=== PATIENT | male | born 1955 | race Caucasian/White ===

== ENCOUNTER 2021-12-04 14:05 | Emergency (ER) | payer OTHER, SELFPAY ==
[2021-12-04] VITALS (8 sets, daily range): BP systolic 118–144; BP diastolic 69–84; PULSE 49–61; RESP 18; TEMP 36.5; O2SAT 96–100; BMI 28.8
--- NOTE | 2021-12-04 15:32 | ED.GENADULT ---
HPI - General Adult General Chief complaint: Urogenital-Male Stated complaint: Thinks kidney stones- lower lt back/abd pain Time Seen by Provider: 12/04/21 14:06 Source: patient Mode of arrival: Family Vehicle History of Present Illness HPI narrative: 66-year-old gentleman with a history of hypertension, hyperlipidemia, no prior history of kidney stones or diverticulitis presents complaining of left lower quadrant pain that started this morning with acute cold sweats. He describes no fever. He notes that yesterday he was working in the [employer] all day long and did not eat or drink much. This morning he has a significant urge to defecate and urinate but has not been able to actually pass any urine or stool. He has had significant nausea and dry heaves but no actual emesis. On arrival in the emergency department he has a bladder scan that shows 75 cc urine only. He describes no chest pain, dyspnea, orthopnea, palpitations, headache, skin changes, back pain. Related Data Allergies Allergy/AdvReac Type Severity Reaction Status Date / Time ciprofloxacin [From Cipro] Allergy Muscle Pain Verified 12/04/21 14:31 Review of Systems Review of Systems Narrative: Remainder of complete review of systems is otherwise unremarkable except for that included in the HPI. Patient History Medical History (Updated 12/04/21 @ 19:44 by Pooja Bales MD) Hyperlipidemia Hypertension Kidney stones Social History Smoking Status: Never smoker Smoking Status: Never smoker alcohol intake frequency: a few times a week Substance Use Type: does not use Exam Initial Vital Signs Initial Vital Signs: Vital Signs Temperature 97.7 F 12/04/21 14:28 Pulse Rate 49 L 12/04/21 14:28 Respiratory Rate 18 12/04/21 14:28 Blood Pressure 118/84 12/04/21 14:28 Pulse Oximetry 100 12/04/21 14:28 Oxygen Delivery Method 12/04/21 14:28 General: Healthy appearing, in mild distress. Able to give a complete and coherent history. Well-nourished well-developed HEENT: Moist mucous membranes, normal sclera with reactive pupils, Neck: No JVD, supple Respiratory: Lungs are clear to auscultation, no wheezing no rales no rhonchi. Full and symmetrical air movement Cardiac: Regular rate and rhythm no murmurs no bruits Abdomen: Soft, mild left lower quadrant and left flank pain without rebound or guarding Skin: Warm and dry, no rashes Neurologic: Grossly neurologically intact with no obvious asymmetries or abnormalities Extremities: No trauma, well perfused Psych: Cooperative, appropriate insight and affect Course Orders Ordered: ED Orders 12/04/21 14:06 UA dip and micro [Urinalysis and Microscopic] Stat 12/04/21 15:42 CT abdomen pelvis wo con Stat 12/04/21 17:31 Complete Blood Count AUTO DIFF Stat Comprehensive Metabolic Panel Stat Hydromorphone HCl (Hydromorphone 0.5 Mg Inj) 0.5 mg IV Q15MIN PRN PRN Reason: Pain, Last Admin: 12/04/21 17:49 Dose: 0.5 mg Documented By: CLARA Sodium Chloride (Normal Saline 0.9%) 1,000 mls @ 150 mls/hr IV CONT IKE Last Admin: 12/04/21 19:33 Dose: Not Given Documented By: AT Discontinued Medications Sodium Chloride (Normal Saline 0.9%) 1,000 mls @ 1,000 mls/hr IV BOLUS ONE Stop: 12/04/21 18:32 Last Infusion: 12/04/21 19:33 Dose: 0 mls/hr Documented By: Admin: 12/04/21 17:49 Dose: 1,000 mls/hr Documented By: CTS Sodium Chloride (Normal Saline 0.9%) 1,000 mls @ 1,000 mls/hr IV BOLUS ONE Stop: 12/04/21 18:33 Last Admin: 12/04/21 19:33 Dose: 1,000 mls/hr Documented By: AT Ketorolac Tromethamine (Ketorolac 30 Mg/Ml Vial) 15 mg IV NOW ONE Stop: 12/04/21 17:34 Last Admin: 12/04/21 17:48 Dose: 15 mg Documented By: CTS Ondansetron HCl (Ondansetron 4 Mg/2 Ml Inj) 4 mg IV NOW ONE Stop: 12/04/21 15:43 Last Admin: 12/04/21 17:48 Dose: 4 mg Documented By: CLARA Oxycodone/Acetaminophen (Oxycodone/Apap 5/325 Prepack) 1 bottle MISC SEEINSTR ONE Stop: 12/04/21 19:35 Vital Signs Vital signs: Vital Signs - 8 hr 12/04/21 14:28 12/04/21 17:30 12/04/21 17:30 Temperature 97.7 F Pulse Rate 49 L 51 L Respiratory Rate 18 Blood Pressure 118/84 139/74 Pulse Oximetry 100 96 Oxygen Delivery Method Room Air Room Air 12/04/21 18:00 Temperature Pulse Rate 55 L Respiratory Rate Blood Pressure Pulse Oximetry 96 Oxygen Delivery Method Room Air Medical Decision Making Lab Data Result diagrams: 12/04/21 17:31 12/04/21 17:31 Labs: Lab Results 12/04/21 12/04/21 Range/Units 17:31 17:31 WBC 9.7 (4.5-11.0) X10^3/uL RBC 4.69 (4.5-5.9) X10^6/uL Hgb 14.7 (13.5-17.5) g/dL Hct 42.1 (41-53) % MCV 89.6 (80-100) fL MCH 31.4 (26-34) PG MCHC 35.0 (30-36) % RDW 14.1 (11.6-14.8) % Plt Count 204 (150-400) X10^3/uL Neut % (Auto) 91.1 H (50-75) % Lymph % (Auto) 4.4 L (25-40) % [place] % (Auto) 4.3 (3-14) % Eos % (Auto) 0.0 L (2-4) % Baso % (Auto) 0.2 (0-2) % Neut # (Auto) 8800 H (4127-4212) /uL Lymph # (Auto) 400 L (0375-9148) /uL [place] # (Auto) 400 (0-900) /uL Eos # (Auto) 0 (0-450) /uL Baso # (Auto) 0 (0-100) /uL Sodium 138 (137-145) mmol/L Potassium 4.3 (3.4-5.1) mmol/L Chloride 105 (98-107) mmol/L Carbon Dioxide 22 (22-32) mmol/L BUN 22 H (9-20) mg/dL Creatinine 0.94 (0.66-1.25) mg/dL Estimated GFR > 60 (>60) mL/min BUN/Creatinine Ratio 23.4 H (6-22) Glucose 133 H (80-110) mg/dL Calcium 8.9 (8.4-10.2) mg/dL Total Bilirubin 0.9 (0.2-1.3) mg/dL AST 33 (17-59) IU/L ALT 29 (<50) IU/L Alkaline Phosphatase 76 (38-126) U/L Total Protein 7.5 (6.3-8.2) g/dL Albumin 4.7 (3.5-5.0) g/dL Globulin 2.8 (1.7-4.1) g/dL Albumin/Globulin Ratio 1.7 (1.0-2.8) Imaging Data CT scan - abdomen/pelvis: Radiologist's Impression: FINDINGS: ? Lower thorax: The lung bases are clear.? Heart size normal.? No hiatal hernia. ? Liver:? Normal in size and attenuation. No contour deformity present. ? Biliary system:? No calcified cholelithiasis or pericholecystic inflammation.? No intra or extrahepatic bile duct dilatation. ? Pancreas:? Unremarkable without mass or inflammation evident. ? Spleen:? Normal in size and density. ? Adrenals:? Normal morphology and density. ? Reproductive system:? Prostatic brachytherapy seeds noted. ? Urinary system:? Small 2 mm distal left ureteral calculus 1 cm from the ureterovesical junction results in moderate left hydronephrosis and hydroureter.? Additional 2.5 cm and left renal cyst noted. ? Gastrointestinal system:? The bowel is unremarkable without evidence of bowel obstruction or inflammation. The stomach appears unremarkable.? Multiple diverticula arise from the sigmoid colon without evidence of diverticulitis. ? ? Appendix:? No findings to suggest acute appendicitis. ? Peritoneal spaces:? No mesenteric or retroperitoneal adenopathy.? No free air.? No free fluid.? ? Vasculature:? Aortic atherosclerotic vascular calcification noted without evidence of aneurysm. ? Abdominal wall:? Bilateral inguinal hernias contain fat without bowel involvement. ? Musculoskeletal:? Normal bone mineralization.? Degenerative disc disease and arthropathy noted in lower lumbar spine.? Severe L4-5 central stenosis.? No acute fractures.? ? IMPRESSION: ? 1. Small 2 mm in the distal left ureter results in moderate left hydronephrosis and hydroureter. ? ? ? Approved by: James Sevilla M.D. on 12/04/2021 at 15:54? MDM Narrative Medical decision making narrative: 66-year-old gentleman with left lower quadrant and flank pain acute onset. CT scan shows 2 mm stone in the distal left ureter with mild left hydronephrosis. There is no evidence of intra-abdominal infection, diverticulitis, pyelonephritis or urinary tract infection. No bowel obstruction or masses appreciated. Patient responded well to 2 L of fluid, small doses of Dilaudid Zofran and Toradol. He is essentially pain-free at time of discharge. Reviewed recommendations with a 2 mm stone that still needs a cm to moved to pass into the bladder itself. Will place him on tamsulosin until the stone passes, give him a prescription for Percocet to use if needed and asked him to return to the ER signs or symptoms of infection or worsening obstruction or follow-up with his primary care provider for routine care. He is safe for home discharge Discharge Plan Departure Patient Disposition: Home Clinical Impression: Kidney stone Instructions: DI for Kidney Stones Activity Restrictions/Additional Instructions: Thank you for coming in today You have 1 to 2 mm kidney stone on the left side. It is about 1 cm from the bladder so it does not have far to go. I have given you a urine strainer to use. Please strain your urine until you see this small kidney stone, and at that point you can stop using the tamsulosin. Using 400 mg of ibuprofen (2 [id number] pills) and 1 Tylenol every 6 hours can be very helpful in controlling pain. For severe pain using 400 mg of ibuprofen and 1 Percocet can be helpful If you have fevers, worsening pain, uncontrolled vomiting or develop new findings or symptoms you do need to return to the emergency department I wish you well Referrals: Bravo Mandel MD [Primary Care Provider] -
--- NOTE | 2021-12-04 15:42 | DI.CT.S_ITS ---
PROCEDURE: CT ABDOMEN PELVIS WO CON INDICATIONS: Left flank/ LLQ pain. ? stone ? diverticulitis TECHNIQUE: After the administration of oral contrast, 5 mm thick sections acquired from the diaphragms to the symphysis. 5 mm coronal and sagittal reformats were performed. For radiation dose reduction, the following was used: automated exposure control, adjustment of mA and/or kV according to patient size. COMPARISON: None. FINDINGS: Lower thorax: The lung bases are clear. Heart size normal. No hiatal hernia. Liver: Normal in size and attenuation. No contour deformity present. Biliary system: No calcified cholelithiasis or pericholecystic inflammation. No intra or extrahepatic bile duct dilatation. Pancreas: Unremarkable without mass or inflammation evident. Spleen: Normal in size and density. Adrenals: Normal morphology and density. Reproductive system: Prostatic brachytherapy seeds noted. Urinary system: Small 2 mm distal left ureteral calculus 1 cm from the ureterovesical junction results in moderate left hydronephrosis and hydroureter. Additional 2.5 cm and left renal cyst noted. Gastrointestinal system: The bowel is unremarkable without evidence of bowel obstruction or inflammation. The stomach appears unremarkable. Multiple diverticula arise from the sigmoid colon without evidence of diverticulitis. Appendix: No findings to suggest acute appendicitis. Peritoneal spaces: No mesenteric or retroperitoneal adenopathy. No free air. No free fluid. Vasculature: Aortic atherosclerotic vascular calcification noted without evidence of aneurysm. Abdominal wall: Bilateral inguinal hernias contain fat without bowel involvement. Musculoskeletal: Normal bone mineralization. Degenerative disc disease and arthropathy noted in lower lumbar spine. Severe L4-5 central stenosis. No acute fractures. IMPRESSION: 1. Small 2 mm in the distal left ureter results in moderate left hydronephrosis and hydroureter. Approved by: James Sevilla M.D. on 12/04/2021 at 15:54
[2021-12-04 17:36] LABS: Add Manual Diff / Slide Review NO; Basophils Absolute Auto 0 /uL (0-100); Basophils Percent Auto 0.2 % (0-2); Eosinophils Absolute Auto 0 /uL (0-450); Hematocrit 42.1 % (41-53); Hemoglobin 14.7 g/dL (13.5-17.5); Lymphocytes Absolute Auto 400 /uL (1100-4500); Lymphocytes Percent Auto 4.4 % (25-40); Mean Corpuscular Hemoglobin 31.4 PG (26-34); Mean Corpuscular Volume 89.6 fL (80-100); Monocytes Absolute Auto 400 /uL (0-900); Monocytes Percent Auto 4.3 % (3-14); Neutrophils Absolute Auto 8800 /uL (1500-7000); Neutrophils Percent Auto 91.1 % (50-75); Platelet Count 204 X10^3/uL (150-400); Red Blood Cell Count 4.69 X10^6/uL (4.5-5.9); Red Cell Distribution Width 14.1 % (11.6-14.8); White Blood Cell Count 9.7 X10^3/uL (4.5-11.0)
[2021-12-04] MEDS: KETOROLAC 30 MG/ML VIAL 15 MG IV (17:48)
[2021-12-04] MEDS: ONDANSETRON 4 MG/2 ML INJ IV (17:48)
[2021-12-04] MEDS: HYDROMORPHONE 0.5 MG INJ IV (17:49)
[2021-12-04] MEDS: SODIUM CHLORIDE 0.9% 1,000 ML 1000 ML IV ×2 (17:49→19:33)
[2021-12-04 18:05] LABS: Alanine Aminotransferase 29 IU/L (<50); Albumin 4.7 g/dL (3.5-5.0); Albumin Globulin Ratio 1.7 (1.0-2.8); Alkaline Phosphatase 76 U/L (38-126); Aspartate Aminotransferase 33 IU/L (17-59); BUN Creatinine Ratio 23.4 (6-22); Bilirubin Total 0.9 mg/dL (0.2-1.3); Blood Urea Nitrogen 22 mg/dL (9-20); Calcium 8.9 mg/dL (8.4-10.2); Carbon Dioxide 22 mmol/L (22-32); Chloride 105 mmol/L (98-107); Estimated Glomerular Filt Rate > 60 mL/min (>60); Globulin 2.8 g/dL (1.7-4.1); Glucose 133 mg/dL (80-110); HEMOLYSIS < 15 (0-50); Potassium 4.3 mmol/L (3.4-5.1); Sodium 138 mmol/L (137-145); Total Protein 7.5 g/dL (6.3-8.2)
--- NOTE | 2021-12-04 18:13 | PC.NURSE ---
x2 RN attempted IV placement and lab attempted to draw blood, unsuccessfully. Delay in labs and medications r/t difficulty, Dr. Bales notified and anupam blood + placed IV.
[2021-12-04] MEDS: OXYCODONE/APAP 5/325 PREPACK 1 BOTTLE MISC (20:02)
== END 2021-12-04 20:20 | disposition home or self-care (01) ==
PROVIDERS: Emergency Provider Emergency Medicine; PCP Internal Medicine
DX: N20.0 Calculus of kidney (principal)
CPT/HCPCS: 51798; 74176; 80053; 85025; 96361; 96374; 96375; 99284; J1170; J1885; J2405

== ENCOUNTER 2023-08-21 07:49 | Day surgery (SDC) | payer OTHER, SELFPAY ==
[2023-08-17 13:35] VITALS: BMI 28.8
[2023-08-21] VITALS (7 sets, daily range): BP systolic 117–141; BP diastolic 64–89; PULSE 46–57; RESP 10–18; TEMP 36.1–36.8; O2SAT 90–99; BMI 28.8
[2023-08-21] MEDS: LACTATED RINGERS 1,000 ML 42 ML IV (08:11)
--- NOTE | 2023-08-21 08:44 | PM.PREOP ---
Pre-operative Note COVID-19 COVID-19 status: Not tested Interval Note History & Physical reviewed/Exam performed by Physician: Yes Changes to H&P: No ASA Class (for procedural sedation): II
--- NOTE | 2023-08-21 09:26 | SUR.OPER ---
Supine on padded OR bed, head on pillow, arms secured on padded arm boards at <90 degrees abduction, legs uncrossed, safety belt at thigh, tape over blanket over lower legs.
[2023-08-21] MEDS: CEFAZOLIN 2 GM/100 ML PREMIX 100 ML IV (09:28)
[2023-08-21] MEDS: BUPIVACAINE 0.5% (PF) 30 ML, EPINEPHrine 0.15 MG INJ (09:33)
--- NOTE | 2023-08-21 10:34 | P.OP_ITS ---
Operative Date/Time/Diagnoses Date of procedure: 08/21/23 Time of procedure: 10:35 Pre-op diagnosis: Right inguinal hernia Post-op diagnosis: same Procedure & Clinicians Procedure: Open right inguinal hernia repair with mesh Same procedure as scheduled: Yes Surgeon: Devyn Baugh Anesthesia Type: General Operative Notes Procedure in detail: Preoperative antibiotic was administered. The patient was brought to the operating room and placed on the table in supine position general anesthesia was induced. The right groin was prepped and draped in the normal fashion and a time-out was performed. Roughly 10 mL of local anesthetic were injected into the skin and subcutaneous adipose tissue over the right groin. A 6 cm incision was made over the right inguinal canal. Dissection was carried down through the subcutaneous adipose tissue. We exposed the external oblique aponeurosis in the direction of the fibers. Additional local was injected deep to the aponeurosis. A 15 blade scalpel was used to mario the external oblique aponeurosis. Metzenbaum scissors were used to carefully open the aponeurosis in the direction of the fibers taking care not to injure the underlying ilioinguinal nerve. We completely exposed the inguinal canal. The cord was dissected free from the inguinal ligament and floor of the inguinal canal and the external oblique aponeurosis was dissected off of the internal oblique taking care not to injure the hypogastric nerve. We encircled the cord with a Roxie drain for retraction. There was an indirect hernia containing a fatty cord lipoma. The cord lipoma was dissected free from the cord structures and the lipoma in the s ac were reduced into the abdomen. We then placed a polypropylene mesh against the floor of the inguinal canal. The mesh was secured with multiple interrupted 3-0 Prolene sutures to the pubic tubercle and shelving edge of the inguinal ligament as well as to the conjoint tendon medially. We overlapped the tails to recreate an internal ring and secured the medial tail to the inguinal ligament with additional sutures. We injected some more local into the fatty tissue in the inguinal canal and cord. Finally, we removed the Mariajose drain and closed the external oblique fascia with a running 3-0 Vicryl suture. Skin was closed with interrupted 3-0 Vicryl dermal sutures and a running 4 Monocryl subcuticular stitch. EBL 5 mL The patient was awakened and brought to recovery room. Post-operative Condition: stable Disposition: PACU
[2023-08-21] MEDS: ACETAMINOPHEN IV 1,000 MG/100 ML VIAL 400 MG IV (10:44)
== END 2023-08-21 11:45 | disposition home or self-care (01) ==
PROVIDERS: PCP Internal Medicine; Referring Provider Surgery; Visit Provider Surgery
PROC: (CPT 49505; principal; 2023-08-21 09:15)
DX: K40.90 Unilateral inguinal hernia, without obstruction or gangrene, not specified as recurrent (principal); D17.6 Benign lipomatous neoplasm of spermatic cord
CPT/HCPCS: 49505; J0136; J0171; J0690; J1100; J2405; J2704; J3010; J3490